=== PATIENT | female | born 1970 | race Caucasian/White ===

== ENCOUNTER 2022-05-11 00:10 | Emergency (ER) | payer MEDICAID ==
[~2022-05-11] VITALS: Ht 157.5 cm; Wt 63.5 kg
[2022-05-11 00:14] VITALS: BP 100/56
--- NOTE | 2022-05-11 00:16 | NUR ---
Patient taken to bed 11.
[2022-05-11] MEDS ORDERED: PIPERACILLIN/TAZOBACTAM 3.375 GM in DEXTROSE 5% 50 ML IV ONE (01:05)
[2022-05-11] MEDS ORDERED: VANCOMYCIN 1,000 MG in DEXTROSE 5% 250 ML IV ONE (01:05)
[2022-05-11] MEDS ORDERED: NACL 0.9% 2,000 ML IV ONE (01:05)
[2022-05-11] MEDS ORDERED: PIPERACILLIN/TAZOBACTAM 3.375 GM VIAL IV ONE (01:16)
--- NOTE | 2022-05-11 01:18 | NUR ---
Blood for labwork drawn. Patient tolerated fair.
[2022-05-11 01:25] LABS: BASOPHILS # (AUTO) 0.1 K/uL (0.00-0.22); BASOPHILS % (AUTO) 0.7 % (0.0-2.0); EOSINOPHILS # (AUTO) 0.3 K/uL (0-0.4); EOSINOPHILS % (AUTO) 2.1 % (0.0-4.0); HEMOGLOBIN 8.5 g/dL (12.0-16.0); LYMPHOCYTES # (AUTO) 2.1 K/uL (2.5-16.5); LYMPHOCYTES % (AUTO) 15.2 % (20.5-51.1); MEAN CORPUSCULAR HEMOGLOBIN 26 pg (27-31); MEAN CORPUSCULAR HGB CONC 33 g/dL (33-37); MEAN CORPUSCULAR VOLUME 80.6 fL (80-94); MONOCYTES % (AUTO) 6.9 % (1.7-9.3); NEUTROPHILS # (AUTO) 10.5 K/uL (1.8-7.7); NEUTROPHILS % (AUTO) 75.1 % (42.2-75.2); PLATELET COUNT (AUTO) 368 K/uL (140-450); RED BLOOD CELL COUNT(AUTO) 3.22 MIL/uL (4.20-5.40); RED CELL DISTRIBUTION WIDTH 16.1 % (11.6-13.7)
[2022-05-11] MEDS ORDERED: VANCOMYCIN 1,000 MG VIAL ONE (02:03)
[2022-05-11 02:10] LABS: APPEARANCE,URINE SL CLOUDY (CLEAR); BILIRUBIN,URINE NEGATIVE (NEGATIVE); BLOOD, URINE TRACE-I (NEGATIVE); COLOR,URINE YELLOW (YELLOW); LEUKOCYTE ESTERASE ,URINE 2+ (NEGATIVE); NITRITE, URINE POSITIVE (NEGATIVE); PH,URINE 8.5 (5.0-9.0); UGLUCOSE NEGATIVE (NEGATIVE)
[2022-05-11 02:13] LABS: ALBUMIN 2.3 g/dL (3.4-5.0); ANION GAP 11.4 (8-16); CARBON DIOXIDE 30.1 mmol/L (21-32); CREATININE 0.7 mg/dL (0.6-1.3); POTASSIUM 4.5 mmol/L (3.5-5.1); TOTAL BILIRUBIN 0.3 mg/dL (0.0-1.0)
[2022-05-11] MEDS ORDERED: ASCO500T95 GT (04:01)
[2022-05-11] MEDS ORDERED: AMLO10TA GT (04:01)
[2022-05-11] MEDS ORDERED: LANTUS SC (04:08)
[2022-05-11] MEDS ORDERED: LISI-487 GT (04:08)
[2022-05-11] MEDS ORDERED: CARV25TA GT (04:08)
[2022-05-11] MEDS ORDERED: KEP500L GT (04:08)
--- NOTE | 2022-05-11 09:40 | NUR ---
RECEIVED REPORT AT [id number] FROM DEVIN EUGENE, [facility]. REFER TO PAPER CHARTING.
--- NOTE | 2022-05-11 11:00 | NUR ---
600CC YELLOW CLOUDY URINE EMPTIED FROM PATIENTS ARAUJO BAG
--- NOTE | 2022-05-11 13:39 | NUR ---
PATIENT LAYING IN BED WITH EYES OPEN, TRACKING. ON BEDSIDE CLAIMS ADJUSTER.
--- NOTE | 2022-05-11 14:32 | NUR ---
400CC YELLOW CLOUDY URINE EMPTIED FROM PATIENTS ARAUJO BAG
--- NOTE | 2022-05-11 14:54 | NUR ---
[facility] BEDSIDE TO TRANSPORT PATIENT BACK TO [facility]
--- NOTE | 2022-05-11 14:55 | NUR ---
IV removed, catheter intact and site benign. Applied folded 4x4 gauze and tape to stop bleeding.
[2022-05-11 14:59] VITALS: BP 160/66
--- NOTE | 2022-05-11 15:00 | NUR ---
Patient discharged with v/s stable. Written and verbal after care instructions given and explained TO RECEIVING NURSE AT FACILITY [facility]. [facility] Transport to intermediate. All questions addressed WITH NURSE RIGO prior to discharge. Advised [facility] PATIENT to follow up with PMD.
--- NOTE | 2022-05-15 13:14 | NUR ---
LATE ENTRY. RECEIVED POSITIVE SPUTUM CULTURE, ANTIBIOTICS GIVEN ARE RESISTANT. CALLED [facility], SPOKE WITH NURSE MARY, CALL TRANSFERRED TO DR CARRASCO FOR PT TO COME BACK TO ER FOR EVAL. STATED THEY WILL ARRANGE FOR TRANSPORT. FORM PLACED IN BINDER.
--- NOTE | 2022-05-15 13:36 | NUR ---
LATE ENTRY. RESULTS FAXED TO [facility]- [phone]
--- NOTE | 2022-05-16 18:50 | NUR ---
LATE ENTRY. RECEIVED POSITIVE URINE CULTURE RESULT. DR YEUNG ATTEMPTED TO CALL FACILITY TO HAVE PT RETURN FOR REVALUATION. WAS PLACED ON HOLD AND NO ONE CAME TO THE PHONE. I ATTEMPTED TO CALL THE FACILTY, NO ANSWER. FORM PLACED IN BINDER
== END 2022-05-11 15:00 ==
LOC: MED 00:10
DX: S01.00XA Unspecified open wound of scalp, initial encounter (principal); Z20.822 Contact with and (suspected) exposure to COVID-19; A41.9 Sepsis, unspecified organism; J18.9 Pneumonia, unspecified organism; N39.0 Urinary tract infection, site not specified; D72.829 Elevated white blood cell count, unspecified; L89.159 Pressure ulcer of sacral region, unspecified stage; D64.9 Anemia, unspecified; I10 Essential (primary) hypertension; J96.10 Chronic respiratory failure, unspecified whether with hypoxia or hypercapnia; I12.9 Hypertensive chronic kidney disease with stage 1 through stage 4 chronic kidney disease, or unspecified chronic kidney disease; N18.9 Chronic kidney disease, unspecified; E78.5 Hyperlipidemia, unspecified; Z79.899 Other long term (current) drug therapy; Z98.890 Other specified postprocedural states; Y83.8 Other surgical procedures as the cause of abnormal reaction of the patient, or of later complication, without mention of misadventure at the time of the procedure; Y93.89 Activity, other specified; Y92.89 Other specified places as the place of occurrence of the external cause; Y99.8 Other external cause status
CPT/HCPCS: 36415; 71045; 80053; 81003; 83605; 85025; 87040; 87070; 87086; 87205; 87426; 87804; 89220; 94003; 94760; 96365; 96367; 99285; J2543; J3370; J7030; Q0092; 99284

== ENCOUNTER 2023-07-31 16:18 | Inpatient (IN) | payer MEDICAID ==
[~2023-07-31] VITALS: Ht 167.6 cm; Wt 80.7 kg
[~2023-07-31 16:18] MED LIST: AMLO10TA GT; ASCO500T95 GT; CARV25TA GT; KEP500L GT; LANTUS SC; LISI-487 GT
[2023-07-31 16:20] VITALS: BP 122/77; PULSE 87; RESP 20; TEMP 97.1; O2SAT 99
[2023-07-31] MEDS ORDERED: ACETAMINOPHEN 650 MG SUPP RC ONE (19:40)
[2023-07-31] MEDS ORDERED: NACL 0.9% 500 ML IV ONE ×2 (19:40→21:00)
[2023-07-31 20:39] LABS: HEMATOCRIT 27.1 % (36-48); HEMOGLOBIN 8.5 g/dL (12.0-16.0); MEAN CORPUSCULAR HEMOGLOBIN 25 pg (27-31); MEAN CORPUSCULAR HGB CONC 31 g/dL (33-37); MEAN CORPUSCULAR VOLUME 78.3 fL (80-94); PLATELET COUNT (AUTO) 401 K/uL (140-450); RED BLOOD CELL COUNT(AUTO) 3.47 MIL/uL (4.20-5.40); RED CELL DISTRIBUTION WIDTH 16.7 % (11.6-13.7); WHITE BLOOD COUNT (AUTO) 22.1 K/uL (4.8-10.8)
[2023-07-31 20:50] LABS: APPEARANCE,URINE CLEAR (CLEAR); BILIRUBIN,URINE NEGATIVE (NEGATIVE); BLOOD, URINE 1+ (NEGATIVE); COLOR,URINE YELLOW (YELLOW); LEUKOCYTE ESTERASE ,URINE TRACE (NEGATIVE); NITRITE, URINE POSITIVE (NEGATIVE); PH,URINE 8.5 (5.0-9.0); PROTEIN,URINE 2+ (NEGATIVE); UGLUCOSE NEGATIVE (NEGATIVE); UROBILINOGEN,URINE 0.2 EU/dL (0.2 - 1)
[2023-07-31 20:59] LABS: ALBUMIN 2.4 g/dL (3.4-5.0); ANION GAP 12.7 (8-16); CALCIUM 9.2 mg/dL (8.5-10.1); CARBON DIOXIDE 28.9 mmol/L (21-32); CREATININE 0.8 mg/dL (0.6-1.3); POTASSIUM 4.6 mmol/L (3.5-5.1); TOTAL BILIRUBIN 0.3 mg/dL (0.0-1.0); TOTAL PROTEIN, SERUM 8.4 g/dL (6.4-8.2)
[2023-07-31] MEDS ORDERED: PIPERACILLIN/TAZOBACTAM 3.375 GM in DEXTROSE 5% 50 ML IV ONE (21:00)
[2023-07-31 21:03] LABS: LACTIC ACID 1.1 mmol/L (0.4-2.0)
[2023-07-31 21:08] LABS: RBC,URINE 0-5 /HPF (0-5); WBC,URINE 0-5 /HPF (0-5)
[2023-07-31 21:08] LABS: HYPOCHROMASIA 1+; LYMPHOCYTES % (MANUAL) 2 % (20-46); MONOCYTES % (MANUAL) 1 % (5-12); PLATELET ESTIMATE ADEQUATE
[2023-07-31 21:09] LABS: BACTERIA,URINE 2+ /HPF (None Seen); MUCUS,URINE 1+ /LPF (None Seen); TRICHOMONAS,URINE None Seen /HPF (None Seen); URINE AMORPHOUS PHOSPHATES 1+ /HPF (None Seen); YEAST,URINE None Seen /HPF (None Seen)
[2023-07-31] MEDS ORDERED: VANCOMYCIN 1,000 MG in DEXTROSE 5% 250 ML IV ONE (21:15)
[2023-07-31] MEDS ORDERED: PIPERACILLIN/TAZOBACTAM 3.375 GM VIAL IV ONE (21:19)
[2023-07-31] MEDS ORDERED: VANCOMYCIN 1,000 MG VIAL ONE (21:19)
[2023-07-31] MEDS ORDERED: ACETAMINOPHEN 650 MG SUPP RC PRN (22:20)
[2023-07-31] MEDS ORDERED: NACL 0.9% 1,000 ML IV ONE (22:20)
[2023-07-31] MEDS ORDERED: NACL 0.9% 1,000 ML IV SCH (22:20)
[2023-08-01] MEDS ORDERED: XAR10 GT (03:34)
[2023-08-01] MEDS ORDERED: KEP500L GT (03:34)
[2023-08-01] MEDS ORDERED: FAMO-368 PO (03:34)
[2023-08-01] MEDS ORDERED: PIPERACILLIN/TAZOBACTAM 3.375 GM in DEXTROSE 5% 50 ML IV SCH (05:00)
[2023-08-01] MEDS ORDERED: PIPERACILLIN/TAZOBACTAM 3.375 GM VIAL IV ONE (05:39)
[2023-08-01] MEDS: DEXT 5% / NACL 0.45% 500 ML IV SCH ×3 (06:10→21:04)
[2023-08-01] MEDS ORDERED: ONDANSETRON 4 MG/2 ML VIAL IVP PRN (06:10)
[2023-08-01] MEDS ORDERED: MAG SULF 2000 MG/WATER PREMIX 50 ML IV PRN (06:10)
[2023-08-01] MEDS ORDERED: LORazepam 2 MG/ML VIAL IVP PRN (06:10)
[2023-08-01] MEDS ORDERED: ACETAMINOPHEN 325 MG TAB PO PRN (06:10)
[2023-08-01] MEDS ORDERED: POTASSIUM CHLORIDE 10 MEQ TABER PO PRN (06:10)
[2023-08-01] MEDS ORDERED: MORPHINE SULFATE 2 MG/ML SYR IVP PRN (06:10)
[2023-08-01] MEDS ORDERED: ZOLPIDEM 10 MG TAB PO PRN (06:10)
[2023-08-01] MEDS ORDERED: DOCUSATE SODIUM 100 MG GELCAP PO PRN (06:10)
[2023-08-01] MEDS ORDERED: DEXTROSE 50% 50 ML SYR IVP PRN (06:15)
[2023-08-01] MEDS: BLOOD GLUCOSE MONITORING 1 DEV DEV FS SCH ×4 (07:30→21:54)
[2023-08-01] MEDS ORDERED: cefTRIAXone 1,000 MG VIAL ONE (08:58)
[2023-08-01] MEDS ORDERED: levETIRAcetam 100 MG/ML ORASYR GT SCH (09:00)
[2023-08-01] MEDS: levETIRAcetam 500 MG in NACL 0.9% 100 ML IV SCH ×2 (09:00→21:40)
[2023-08-01] MEDS ORDERED: RIVAROXABAN 10 MG TAB GT SCH (09:00)
[2023-08-01] MEDS ORDERED: CRUSHER, PILL MC ONE ×2 (09:53→21:33)
[2023-08-01] MEDS: carvediloL 12.5 MG TAB GT SCH ×2 (09:55→21:38)
[2023-08-01] MEDS: lisinopriL 20 MG TAB GT SCH (09:56)
[2023-08-01] MEDS: ASCORBIC ACID 500 MG TAB GT SCH (09:56)
[2023-08-01] MEDS: amLODIPine 5 MG TAB GT SCH (09:56)
[2023-08-01] MEDS ORDERED: levETIRAcetam 100 MG/ML ORASYR ONE (10:01)
[2023-08-01] MEDS ORDERED: levETIRAcetam 100 MG/ML VIAL IV ONE ×2 (10:28→21:34)
[2023-08-01 20:25] VITALS: BP 118/60; PULSE 75; PULSE 82; RESP 18; TEMP 97.5; O2SAT 100
[2023-08-02] VITALS: BP 139/80; PULSE 68; PULSE 69; RESP 18; TEMP 96.1; O2SAT 100
[2023-08-02 04:00] VITALS: BP 126/51; PULSE 72; PULSE 74; RESP 19; TEMP 96; O2SAT 100
[2023-08-02] MEDS: DEXT 5% / NACL 0.45% 500 ML IV SCH ×3 (04:24→22:32)
[2023-08-02] MEDS: BLOOD GLUCOSE MONITORING 1 DEV DEV FS SCH ×4 (06:41→22:15)
[2023-08-02 07:21] LABS: BASOPHILS # (AUTO) 0.1 K/uL (0.00-0.22); BASOPHILS % (AUTO) 0.7 % (0.0-2.0); EOSINOPHILS # (AUTO) 0.2 K/uL (0-0.4); EOSINOPHILS % (AUTO) 1.4 % (0.0-4.0); HEMATOCRIT 22.9 % (36-48); HEMOGLOBIN 7.3 g/dL (12.0-16.0); LYMPHOCYTES # (AUTO) 2.1 K/uL (2.5-16.5); LYMPHOCYTES % (AUTO) 14.7 % (20.5-51.1); MEAN CORPUSCULAR HEMOGLOBIN 25 pg (27-31); MEAN CORPUSCULAR HGB CONC 32 g/dL (33-37); MEAN CORPUSCULAR VOLUME 78.9 fL (80-94); MONOCYTES # (AUTO) 1.1 K/uL (0.8-1.0); MONOCYTES % (AUTO) 7.3 % (1.7-9.3); NEUTROPHILS % (AUTO) 75.9 % (42.2-75.2); PLATELET COUNT (AUTO) 349 K/uL (140-450); RED BLOOD CELL COUNT(AUTO) 2.91 MIL/uL (4.20-5.40); RED CELL DISTRIBUTION WIDTH 16.6 % (11.6-13.7); WHITE BLOOD COUNT (AUTO) 14.5 K/uL (4.8-10.8)
[2023-08-02 07:27] LABS: ANION GAP 10.8 (8-16); CALCIUM 8.5 mg/dL (8.5-10.1); CARBON DIOXIDE 28.2 mmol/L (21-32); CREATININE 0.7 mg/dL (0.6-1.3)
[2023-08-02 08:00] VITALS: BP 115/56; PULSE 84; RESP 18; TEMP 97.1; O2SAT 100
[2023-08-02] MEDS: lisinopriL 20 MG TAB GT SCH (09:00)
[2023-08-02] MEDS: ASCORBIC ACID 500 MG TAB GT SCH (10:01)
[2023-08-02] MEDS: carvediloL 12.5 MG TAB GT SCH ×2 (10:02→22:42)
[2023-08-02] MEDS: levETIRAcetam 500 MG in NACL 0.9% 100 ML IV SCH ×2 (10:05→22:35)
[2023-08-02] MEDS: amLODIPine 5 MG TAB GT SCH (10:07)
[2023-08-02 12:00] VITALS: BP 110/56
[2023-08-02] MEDS: INSULIN LISPRO SLIDING SCALE 100 UNITS/ML VIAL SUBQ PRN (12:33)
[2023-08-02 16:00] VITALS: BP 115/48; PULSE 84; TEMP 97.1
[2023-08-02] MEDS: METOCLOPRAMIDE 10 MG/10 ML SYRP UDC GT SCH (17:09)
[2023-08-02 20:00] VITALS: BP 110/66; PULSE 77; PULSE 84; RESP 20; TEMP 97.1; TEMP 98; O2SAT 95; O2SAT 96
[2023-08-03] VITALS (7 sets, daily range): BP systolic 115–145; BP diastolic 48–63; PULSE 70–89; RESP 16–20; TEMP 97.1–98.1; O2SAT 95–100
[2023-08-03] MEDS: BLOOD GLUCOSE MONITORING 1 DEV DEV FS SCH ×4 (06:52→20:46)
[2023-08-03] MEDS: METOCLOPRAMIDE 10 MG/10 ML SYRP UDC GT SCH ×3 (07:30→16:02)
[2023-08-03 07:33] LABS: BASOPHILS # (AUTO) 0.1 K/uL (0.00-0.22); BASOPHILS % (AUTO) 0.3 % (0.0-2.0); EOSINOPHILS # (AUTO) 0.2 K/uL (0-0.4); HEMATOCRIT 23.8 % (36-48); HEMOGLOBIN 7.4 g/dL (12.0-16.0); LYMPHOCYTES # (AUTO) 1.3 K/uL (2.5-16.5); LYMPHOCYTES % (AUTO) 8.1 % (20.5-51.1); MEAN CORPUSCULAR HEMOGLOBIN 25 pg (27-31); MEAN CORPUSCULAR HGB CONC 31 g/dL (33-37); MONOCYTES # (AUTO) 1.2 K/uL (0.8-1.0); MONOCYTES % (AUTO) 7.8 % (1.7-9.3); NEUTROPHILS # (AUTO) 13.2 K/uL (1.8-7.7); NEUTROPHILS % (AUTO) 82.8 % (42.2-75.2); PLATELET COUNT (AUTO) 366 K/uL (140-450); RED BLOOD CELL COUNT(AUTO) 3.02 MIL/uL (4.20-5.40); RED CELL DISTRIBUTION WIDTH 16.6 % (11.6-13.7); WHITE BLOOD COUNT (AUTO) 15.9 K/uL (4.8-10.8)
[2023-08-03 07:50] LABS: ANION GAP 14.8 (8-16); CARBON DIOXIDE 25.9 mmol/L (21-32); CREATININE 0.6 mg/dL (0.6-1.3); POTASSIUM 3.7 mmol/L (3.5-5.1)
[2023-08-03] MEDS: carvediloL 12.5 MG TAB GT SCH ×2 (08:35→20:47)
[2023-08-03] MEDS: amLODIPine 5 MG TAB GT SCH (08:35)
[2023-08-03] MEDS: ASCORBIC ACID 500 MG TAB GT SCH (08:36)
[2023-08-03] MEDS: lisinopriL 20 MG TAB GT SCH (08:36)
[2023-08-03] MEDS: levETIRAcetam 500 MG in NACL 0.9% 100 ML IV SCH ×2 (08:37→20:48)
[2023-08-03] MEDS: DEXT 5% / NACL 0.45% 500 ML IV SCH ×2 (08:47→21:52)
[2023-08-03] MEDS ORDERED: THERAHONEY GEL 42.5 GM TP PRN (13:20)
[2023-08-03] MEDS: FOAM DRESSING TP SCH (14:17)
[2023-08-03] MEDS: THERAHONEY GEL 42.5 GM TP SCH (14:17)
[2023-08-03] MEDS: Z-GUARD PASTE TP SCH (14:18)
[2023-08-03] MEDS: INSULIN LISPRO SLIDING SCALE 100 UNITS/ML VIAL SUBQ PRN (20:59)
[2023-08-03] MEDS ORDERED: PIPERACILLIN/TAZOBACTAM 3.375 GM in DEXTROSE 5% 50 ML IV SCH (21:00)
[2023-08-04] VITALS (8 sets, daily range): BP systolic 124–126; BP diastolic 48–85; PULSE 68–79; RESP 16–19; TEMP 97.2–97.3; O2SAT 98–100
[2023-08-04] MEDS: DEXT 5% / NACL 0.45% 500 ML IV SCH (02:53)
[2023-08-04] MEDS: METOCLOPRAMIDE 10 MG/10 ML SYRP UDC GT SCH ×3 (06:32→16:08)
[2023-08-04] MEDS: BLOOD GLUCOSE MONITORING 1 DEV DEV FS SCH ×3 (06:35→16:08)
[2023-08-04] MEDS: INSULIN LISPRO SLIDING SCALE 100 UNITS/ML VIAL SUBQ PRN (06:37)
[2023-08-04 06:38] LABS: BASOPHILS % (AUTO) 0.4 % (0.0-2.0); EOSINOPHILS # (AUTO) 0.2 K/uL (0-0.4); EOSINOPHILS % (AUTO) 1.8 % (0.0-4.0); HEMATOCRIT 22.1 % (36-48); LYMPHOCYTES # (AUTO) 2.1 K/uL (2.5-16.5); LYMPHOCYTES % (AUTO) 18.1 % (20.5-51.1); MEAN CORPUSCULAR HEMOGLOBIN 25 pg (27-31); MEAN CORPUSCULAR HGB CONC 32 g/dL (33-37); MONOCYTES # (AUTO) 1.4 K/uL (0.8-1.0); MONOCYTES % (AUTO) 11.6 % (1.7-9.3); NEUTROPHILS # (AUTO) 8.1 K/uL (1.8-7.7); NEUTROPHILS % (AUTO) 68.1 % (42.2-75.2); PLATELET COUNT (AUTO) 353 K/uL (140-450); RED CELL DISTRIBUTION WIDTH 16.4 % (11.6-13.7); WHITE BLOOD COUNT (AUTO) 11.9 K/uL (4.8-10.8)
[2023-08-04 08:13] LABS: CALCIUM 8.5 mg/dL (8.5-10.1); CARBON DIOXIDE 26.9 mmol/L (21-32); CREATININE 0.6 mg/dL (0.6-1.3); POTASSIUM 3.9 mmol/L (3.5-5.1)
[2023-08-04] MEDS: levETIRAcetam 500 MG in NACL 0.9% 100 ML IV SCH (08:20)
[2023-08-04] MEDS: ASCORBIC ACID 500 MG TAB GT SCH (08:21)
[2023-08-04] MEDS: lisinopriL 20 MG TAB GT SCH (08:21)
[2023-08-04] MEDS: carvediloL 12.5 MG TAB GT SCH (08:21)
[2023-08-04] MEDS: amLODIPine 5 MG TAB GT SCH (08:21)
[2023-08-04] MEDS ORDERED: ROC2I IV (09:11)
[2023-08-04] MEDS: FOAM DRESSING TP SCH (11:31)
[2023-08-04] MEDS: Z-GUARD PASTE TP SCH (11:31)
[2023-08-04] MEDS: THERAHONEY GEL 42.5 GM TP SCH (11:31)
== END 2023-08-04 20:10 | DRG 720 ==
LOC: MED 16:18 → MMU 22:28 → MTU 08-01 18:42
PROVIDERS: ADMIT Family Medicine; ATTEND Family Medicine
DX: A41.9 Sepsis, unspecified organism (principal); J69.0 Pneumonitis due to inhalation of food and vomit; E43 Unspecified severe protein-calorie malnutrition; R53.2 Functional quadriplegia; K94.23 Gastrostomy malfunction; I10 Essential (primary) hypertension; N39.0 Urinary tract infection, site not specified; R13.10 Dysphagia, unspecified; Z88.1 Allergy status to other antibiotic agents; Z79.899 Other long term (current) drug therapy; Z79.4 Long term (current) use of insulin; Z74.01 Bed confinement status; Z68.28 Body mass index [BMI] 28.0-28.9, adult
CPT/HCPCS: 36415; 71045; 74018; 80048; 80053; 81001; 82948; 83036; 83605; 83690; 83735; 85025; 87040; 87081; 87086; 96365; 96367; 99285; J0696; J1644; J1815; J1953; J2543; J3370; J3475; J7060; J8597; Q0092; Q9967